=== PATIENT | female | born 1970 | race Caucasian/White ===

== ENCOUNTER → 2016-07-23 | Outpatient (CLI) | payer BC ==
[2016-07-23 14:14] VITALS: BP 117/70; PULSE 76; RESP 14; TEMP 97.9; BMI 32.2
--- NOTE | 2016-07-23 16:30 | P.HPBAR ---
Bariatric H&P - History & Physicial H&P Date: 07/23/16 History & Physicial: Visit/CC: Patient initial contact: Initial weight: 103.873 kg Initial weight in pounds: 229.00 Height: 5 ft 3.5 in Initial BMI: 39.9 Last weight: Current weight: 83.824 kg Current weight in pounds: 184.80 Current BMI: 32.2 [place] body weight (based on NIH guidelines): 53.297 kg Excess body weight loss: 39.6% The patient is a 46 year-old F who presents for Bariatric Assessment. Patient states that she is currently hungry. She feels that her LAP-BAND is not working. She has no restriction. Review of Systems Constitutional: Reports as per HPI Past Medical History Past Medical History: No Reported History History of Any Multi-Drug Resistant Organisms: None Reported Past Surgical History: Bariatric Surgery, Cholecystectomy Additional Past Surgical History / Comment(s): lap band January 2003, cholecystectomy 2006, uterine ablation 2012, Past Anesthesia/Blood Transfusion Reactions: No Reported Reaction, Postoperative Nausea & Vomiting (PONV) Additional Past Anesthesia/Blood Transfusion Reaction / Comm: no transfusions to date. Past Psychological History: No Psychological Hx Reported Smoking Status: Former smoker Past Alcohol Use History: None Reported Past Drug Use History: None Reported - Past Family History Father Family Medical History: Cancer Additional Family Medical History / Comment(s): at age 57 from Prostate Cancer, Mother Family Medical History: Coronary Artery Disease (CAD) Additional Family Medical History / Comment(s): aortic valve replacement, alive currently aged 74 Surgical - Exam Vital Signs Temp Pulse Resp BP 97.9 F 76 14 117/70 07/23/16 14:08 07/23/16 14:08 07/23/16 14:08 07/23/16 14:08 - General well developed, no distress - Eyes PERRL - ENT normal pinna - Neck no masses - Respiratory normal expansion - Cardiovascular Rhythm: regular - Abdomen Abdomen: soft Bariatric Assessment & Plan Plan: The patient LAP-BAND was accessed. There is no fluid in her band. I explained to the patient that she has a malfunctioning LAP-BAND port. The patient wishes to convert to sleeve gastrectomy and removal LAP-BAND due to the malfunction of the band. The patient will attend information seminar.. We will attempt to obtain insurance authorization for conversion to sleeve gastrectomy. Bariatric Checklist Checklist: Plan: Checklist: EGD: 1. Hiatal hernia: 2. H. Pylori: HgbA1c: Vitamin D: Smoking: Former smoker Primary care physician referral: Alexei [place]) Psychiatry clearance: Cardiology clearance: Sleep study: Diet journal: VTE risk score: VTE risk level: Rehab needs at discharge:
== END ==
LOC: BARWHC3 13:15
PROVIDERS: ATTEND Surgery
DX: Z48.815 Encounter for surgical aftercare following surgery on the digestive system (principal); Z98.84 Bariatric surgery status; Z87.891 Personal history of nicotine dependence
CPT/HCPCS: 99212

== ENCOUNTER 2016-08-15 13:52 | Day surgery (SDC) | payer BC ==
[2016-08-10 08:35] VITALS: BMI 31.7
[~2016-08-15 13:52] MED LIST: LACTATED RINGERS 1,000 ML IV SCH; LIDOCAINE 1% 20 ML VIAL (10MG/ML) FOR IV START INTRADERMA PRN
[2016-08-15 14:24] VITALS: TEMP 98.3
[2016-08-15] MEDS ORDERED: PROPOFOL 10 MG/ML 20 ML VIAL IV ONE (15:11)
[2016-08-15] MEDS ORDERED: LIDOCAINE 1% INJ 10MG/ML (20 ML MDV) ONE (15:11)
--- NOTE | 2016-08-15 15:13 | P.GSHP ---
History of Present Illness H&P Date: 08/15/16 Chief Complaint: GERD This a 46-year-old female who's had issues with GERD. Patient has previous history of LAP-BAND surgery. Patient states that her GERD symptoms of increased. Patient rents today for EGD. - Constitutional Constitutional: Reports as per HPI Past Medical History Past Medical History: No Reported History History of Any Multi-Drug Resistant Organisms: None Reported Past Surgical History: Bariatric Surgery, Cholecystectomy, Tubal Ligation, Uterine Ablation Additional Past Surgical History / Comment(s): lap band January 2003, cholecystectomy 2006, uterine ablation 2012, Past Anesthesia/Blood Transfusion Reactions: No Reported Reaction, Postoperative Nausea & Vomiting (PONV) Additional Past Anesthesia/Blood Transfusion Reaction / Comment(s): no transfusions to date. Past Psychological History: No Psychological Hx Reported Smoking Status: Former smoker Past Alcohol Use History: None Reported Past Drug Use History: None Reported - Past Family History Father Family Medical History: Cancer Additional Family Medical History / Comment(s): at age 57 from Prostate Cancer, Mother Family Medical History: Coronary Artery Disease (CAD) Additional Family Medical History / Comment(s): aortic valve replacement, alive currently aged 74 Medications and Allergies Home Medications Medication Instructions Recorded Confirmed Type No Known Home Medications [No 08/10/16 08/15/16 History Known Home Medications] Allergies Allergy/AdvReac Type Severity Reaction Status Date / Time No Known Allergies Allergy Verified 08/15/16 14:27 Surgical - Exam Vital Signs Temp Pulse Resp BP Pulse Ox 98.3 F 62 18 133/85 97 08/15/16 14:23 08/15/16 14:23 08/15/16 14:23 08/15/16 14:23 08/15/16 14:23 - General well developed, no distress - Eyes PERRL - ENT normal pinna - Neck no masses - Respiratory normal expansion - Cardiovascular Rhythm: regular - Abdomen Abdomen: soft, non tender Assessment and Plan Plan: GERD. We'll perform EGD.
--- NOTE | 2016-08-15 15:24 | P.OP ---
Date of Procedure: 08/15/16 Preoperative Diagnosis: GERD Postoperative Diagnosis: Antral gastritis Mild esophagitis LAP-BAND without evidence of inflammation or erosion Procedure(s) Performed: EGD Implants: Anesthesia: MAC Surgeon: Matty Guidry Pathology: other (Antrum, esophagus) Condition: stable Disposition: PACU Indications for Procedure: Operative Findings: Description of Procedure: The patient's placed on the endoscopy table in the lateral position. She received IV sedation. The gastroscope some placed oropharynx and passed into the esophagus and into the stomach. Scope was then placed through the pylorus. First and second portion of the duodenum appeared normal. Scope was then brought back the antrum and this appeared mildly inflamed. Biopsies were. Scope was unretroflexed and remainder stomach appeared normal. There is a previously placed Tiffanie device this without evidence of inflammation or erosion. The proximal gastric pouch appeared mildly dilated. The GE junction was at 40 cm. The distal esophagus appeared mildly inflamed a biopsies were. The proximal esophagus appeared normal. Scope was withdrawn for patient.
[2016-08-15 15:29] VITALS: RESP 16
[2016-08-15 15:47] VITALS: BP 105/69; PULSE 70
== END 2016-08-15 15:55 | disposition home or self-care (01) ==
LOC: ORWHC2ENDO 13:52
PROVIDERS: ATTEND Surgery
DX: K21.0 Gastro-esophageal reflux disease with esophagitis (principal); K29.50 Unspecified chronic gastritis without bleeding; Z98.84 Bariatric surgery status; Z87.891 Personal history of nicotine dependence
CPT/HCPCS: 81025; 88305; 88342; 43239; J2001; J2704

== ENCOUNTER → 2016-08-20 | Outpatient (CLI) | payer BC ==
[2016-08-20 12:09] VITALS: BMI 33.3
[2016-08-20 13:19] VITALS: BP 121/78; PULSE 61; TEMP 97.7
--- NOTE | 2016-08-20 13:32 | P.HPBAR ---
Bariatric H&P - History & Physicial H&P Date: 08/20/16 History & Physicial: Visit/CC: presurgical visit Patient initial contact: Initial weight: 103.873 kg Initial weight in pounds: 229.00 Height: 5 ft 3.5 in Initial BMI: 39.9 Last weight: Current weight: 86.59 kg Current weight in pounds: 190.90 Current BMI: 33.3 [place] body weight (based on NIH guidelines): 53.297 kg Excess body weight loss: 34.1% The patient is a 46 year-old F who presents for Bariatric Assessment. Patient presents for preoperative sleeve consultation. She has undergone recent EGD which showed some mild gastritis. The patient has a good understanding significant gastrectomy. We went over the risks and benefits and complications the procedure again. We focused on the risk of gastric leak. The patient's had chronic issues with dysphagia from her LAP-BAND was to the LAP-BAND removed. Past Medical History Past Medical History: No Reported History History of Any Multi-Drug Resistant Organisms: None Reported Past Surgical History: Bariatric Surgery, Cholecystectomy, Tubal Ligation, Uterine Ablation Additional Past Surgical History / Comment(s): lap band January 2003, cholecystectomy 2006, uterine ablation 2012, Past Anesthesia/Blood Transfusion Reactions: No Reported Reaction, Postoperative Nausea & Vomiting (PONV) Additional Past Anesthesia/Blood Transfusion Reaction / Comm: no transfusions to date. Past Psychological History: No Psychological Hx Reported Smoking Status: Former smoker Past Alcohol Use History: None Reported Past Drug Use History: None Reported - Past Family History Father Family Medical History: Cancer Additional Family Medical History / Comment(s): at age 57 from Prostate Cancer, Mother Family Medical History: Coronary Artery Disease (CAD) Additional Family Medical History / Comment(s): aortic valve replacement, alive currently aged 74 Surgical - Exam Vital Signs Temp Pulse BP 97.7 F 61 121/78 08/20/16 13:15 08/20/16 13:15 08/20/16 13:15 - General well developed, no distress - Eyes PERRL - ENT normal pinna - Neck no masses - Respiratory normal expansion - Cardiovascular Rhythm: regular - Abdomen Abdomen: soft, non tender Bariatric Assessment & Plan Plan: Dysphagia, GERD, morbid obesity. Patient will be scheduled for sleeve gastrectomy once her preauthorization has been completed. Bariatric Checklist Checklist: Plan: Checklist: EGD: 1. Hiatal hernia: 2. H. Pylori: HgbA1c: Vitamin D: Smoking: Former smoker Primary care physician referral: [place]) Psychiatry clearance: Cardiology clearance: Sleep study: Diet journal: VTE risk score: VTE risk level: Rehab needs at discharge:
== END | disposition home or self-care (01) ==
LOC: BARWHC3 08:49
PROVIDERS: ATTEND Surgery
DX: E66.01 Morbid (severe) obesity due to excess calories (principal); Z87.891 Personal history of nicotine dependence
CPT/HCPCS: 97804; 99211

== ENCOUNTER → 2016-08-20 | Outpatient (CLI) | payer BC ==
[2016-08-20 14:00] LABS: EKG EKG PERFORMED
[2016-08-20 14:31] LABS: Basophils % (A) 1 %; CH 31.2; CHCM 33.1; Eosinophils # (A) 0.3 k/uL (0-0.7); Eosinophils % (A) 3 %; HCT 40.2 % (34.0-46.0); HDW 2.31; HGB 13.5 gm/dL (11.4-16.0); Luc # (Auto) 0.21; Luc % (Auto) 2; Lymphocytes # (A) 2.4 k/uL (1.0-4.8); Lymphocytes % (A) 28 %; MCH 31.8 pg (25.0-35.0); MCHC 33.6 g/dL (31.0-37.0); MCV 94.8 fL (80.0-100.0); Mean Platelet Volume 7.8; Monocytes # (A) 0.4 k/uL (0-1.0); Monocytes % (A) 5 %; Neutrophils # (A) 5.4 k/uL (1.3-7.7); Neutrophils % (A) 62 %; RBC 4.24 m/uL (3.80-5.40); RDW 12.9 % (11.5-15.5); WBC 8.8 k/uL (3.8-10.6); WBC (Perox) 9.23
[2016-08-20 14:40] LABS: ALT 27 U/L (9-52); AST 31 U/L (14-36); Alkaline Phosphatase 72 U/L (38-126); Anion Gap 12 mmol/L; Blood Urea Nitrogen 12 mg/dL (7-17); Calcium 9.9 mg/dL (8.4-10.2); Carbon Dioxide 25 mmol/L (22-30); Chloride 104 mmol/L (98-107); Glucose 91 mg/dL (74-99); Non-African American GFR(MDRD) >60 (>60 ml/min/1.73 sqM); Potassium 4.5 mmol/L (3.5-5.1); Sodium 141 mmol/L (137-145); Total Bilirubin 0.8 mg/dL (0.2-1.3); Total Protein 7.7 g/dL (6.3-8.2)
== END | disposition home or self-care (01) ==
LOC: LABPAT 13:45
PROVIDERS: ATTEND Surgery
DX: Z01.812 Encounter for preprocedural laboratory examination (principal)
CPT/HCPCS: 80053; 85025; 93005

== ENCOUNTER 2016-09-12 09:59 | Inpatient (IN) | payer BC ==
[~2016-09-12 09:59] MED LIST changes: +DEXAMETHASONE SOD PHOSPHATE 10 MG/ML 1 ML VIAL IV ONE; +MIDAZOLAM 2 MG/2 ML VIAL IV PRN; +ONDANSETRON 4 MG/2 ML VIAL IVP ONE; +SCOPOLAMINE 1.5MG/72HR PATCH TRANSDERM ONE; +ceFAZolin 2 GM in SODIUM CHLORIDE 0.9% 100 ML IVPB ONE
[2016-09-12] MEDS ORDERED: ENOXAPARIN 40 MG/0.4 ML SYRINGE SQ STA (15:51)
--- NOTE | 2016-09-12 16:15 | P.GSHP ---
History of Present Illness H&P Date: 09/12/16 Chief Complaint: Dysphagia secondary to gastric prolapse Is a 38-year-old female who presents today for laparoscopic removal of LAP-BAND and conversion sleeve gastrectomy. She's had progressive issues with dysphagia secondary to gastric prolapse and displacement of her LAP-BAND. Patient is aware the risk surgery including conversion O procedure and injury to the stomach liver spleen. She is also aware the risk of gastric staple line disruption perforation or bleeding. - Constitutional Constitutional: Reports as per HPI Past Medical History Past Medical History: No Reported History Additional Past Medical History / Comment(s): ANEMIA, BRADFORD RIGHT HAND., STATES LAP BAND IS BROKE. History of Any Multi-Drug Resistant Organisms: None Reported Past Surgical History: Bariatric Surgery, Cholecystectomy, Tubal Ligation, Uterine Ablation Additional Past Surgical History / Comment(s): lap band January 2003, cholecystectomy 2006, uterine ablation 2012, Past Anesthesia/Blood Transfusion Reactions: Motion Sickness, Postoperative Nausea & Vomiting (PONV) Additional Past Anesthesia/Blood Transfusion Reaction / Comment(s): . Past Psychological History: No Psychological Hx Reported Smoking Status: Never smoker Past Alcohol Use History: None Reported Past Drug Use History: None Reported - Past Family History Father Family Medical History: Cancer Additional Family Medical History / Comment(s): at age 57 from Prostate Cancer, Mother Family Medical History: Coronary Artery Disease (CAD) Additional Family Medical History / Comment(s): aortic valve replacement, alive currently aged 74 Medications and Allergies Home Medications Medication Instructions Recorded Confirmed Type Multivitamin [Multiple Vitamins] 1 each PO DAILY 09/04/16 09/04/16 History Allergies Allergy/AdvReac Type Severity Reaction Status Date / Time No Known Allergies Allergy Verified 09/04/16 10:31 Surgical - Exam Vital Signs Temp Pulse Resp BP Pulse Ox 97.0 F L 78 16 95/71 95 09/12/16 15:08 09/12/16 15:08 09/12/16 15:08 09/12/16 15:08 09/12/16 15:08 - General well developed, no distress - Eyes PERRL - ENT normal pinna - Neck no masses - Respiratory normal expansion - Cardiovascular Rhythm: regular - Abdomen Abdomen: soft, non tender Assessment and Plan Plan: Gastric prolapse, dysphagia. We'll perform removal of LAP-BAND and conversion sleeve gastrectomy.
[2016-09-12] MEDS ORDERED: METHYLENE BLUE 15 MG in DEXTROSE 5% IN WATER 500 ML IRRIGATION ONE ×2 (16:30)
[2016-09-12] MEDS ORDERED: MIDAZOLAM 2 MG/2 ML VIAL ONE (16:38)
[2016-09-12] MEDS ORDERED: PROPOFOL 10 MG/ML 20 ML VIAL IV ONE (16:38)
[2016-09-12] MEDS ORDERED: KETOROLAC 30 MG/ML 1 ML VIAL ONE (16:38)
[2016-09-12] MEDS ORDERED: GLYCOPYRROLATE 0.2 MG/ML 2 ML VIAL ONE (16:38)
[2016-09-12] MEDS ORDERED: fentaNYL (PF) 50 MCG/ML 2 ML AMP ONE (16:38)
[2016-09-12] MEDS ORDERED: LIDOCAINE 1% INJ 10MG/ML (20 ML MDV) ONE (16:38)
[2016-09-12] MEDS ORDERED: SUCCINYLCHOLINE CHLORIDE 100 MG/5 ML SYR IV ONE (16:38)
[2016-09-12] MEDS ORDERED: ROCURONIUM BROMIDE 10 MG/ML 10 ML VIAL IV ONE (16:38)
[2016-09-12] MEDS ORDERED: NEOSTIGMINE 1 MG/ML 10 ML VIAL ONE (16:38)
[2016-09-12] MEDS ORDERED: LACTATED RINGERS 1,000 ML IV ONE (17:05)
[2016-09-12] MEDS ORDERED: BUPIVACAIN-EPI 0.25%-1:200,000 30 ML VIAL SQ ONE (17:13)
[2016-09-12] MEDS ORDERED: NALOXONE 0.4 MG/ML 1 ML VIAL IV PRN (18:18)
--- NOTE | 2016-09-12 18:19 | P.OP ---
Date of Procedure: 09/12/16 Preoperative Diagnosis: Dysphagia Gastric prolapse Postoperative Diagnosis: Dysphagia Gastric prolapse Procedure(s) Performed: Removal LAP-BAND system Laparoscopic sleeve gastrectomy Implants: Anesthesia: YOVANIA Surgeon: Matty Guidry Estimated Blood Loss (ml): 50 Pathology: other (Stomach) Condition: stable Disposition: PACU Indications for Procedure: Operative Findings: Description of Procedure: TThe patient was placed on the operating room table in the supine position. She received general anesthesia and then was placed in dorsal lithotomy position. Her abdomen was prepped and draped in sterile fashion. The skin incision sites were anesthetized 1% local Xylocaine. And then the skin was incised with an 11 blade in the left lateral position. Using a blade less trocar under direct visualization the peritoneal cavity was entered. The abdomen was insufflated and then a 5 mm laparoscope was placed into the peritoneal cavity. A 5 mm trocar was placed in the right epigastric, and right lateral position. A 15 mm trocar was placed in the supra-umbilical position and another 5 mm trocar was placed in the left lateral position. The left lateral lobe of the liver was retracted. The stomach was visualized. The LAP-BAND device was visualized. The LAP-BAND was dissected free from the stomach. The buckle was then cut and then the anterior gastric wall plication was taken down with sharp dissection. Care was taken to visualize the stomach and esophagus and present injury to the stomach and esophagus. Once the LAP- BAND and was free it was extracted through the 15 mm trocar site The greater curvature of the stomach was then dissected using the Harmonic scissors. The dissection occurred approximately 5 cm from the pylorus to the level of the left yumiko. There was no hiatal hernia seen. At this point a 40- Italian bougie dilator was placed the oropharynx and passed into the esophagus and into the stomach by the SURVEILLANCE INVESTIGATOR. The sleeve gastrectomy was performed by using the powered echelon stapler with a seam guard buttress material. Sequential firings of the stapler were performed. The gastric remnant was then brought out through the 15 mm trocar site. The dilator was withdrawn. And a orogastric tube was replaced into the stomach. The stomach was insufflated with 200 mL of methylene blue normal saline. There was no evidence of extravasation. The abdomen was irrigated there is no bleeding seen. The Doug -Samantha device was used to close the 15 mm trocar with 0 Vicryl. Skin was closed with interrupted 3-0 Monocryl sutures once the trochars withdrawn. Dermabond dressing was applied. Patient was sent to recovery in stable condition.
[2016-09-12] MEDS: HYDROmorphone 1 MG/ML 1 ML SYRINGE IVP PRN ×5 (18:39→22:59)
[2016-09-12] MEDS: 0.9% NACL WITH KCL 20 MEQ/L 1,000 ML IV SCH (19:51)
[2016-09-12] MEDS: ALBUTEROL NEBULIZED 2.5 MG/3 ML INHALATION SCH (21:00)
[2016-09-13] MEDS: AMPICILLIN-SULBACTAM 3 GM in SODIUM CHLORIDE 0.9% 100 ML IVPB SCH ×2 (00:24→05:55)
[2016-09-13] MEDS: HYDROmorphone 1 MG/ML 1 ML SYRINGE IVP PRN ×2 (02:57→05:56)
[2016-09-13] MEDS: 0.9% NACL WITH KCL 20 MEQ/L 1,000 ML IV SCH (03:00)
[2016-09-13] MEDS: ONDANSETRON 4 MG/2 ML VIAL IVP PRN ×2 (03:03→09:47)
[2016-09-13 07:01] LABS: Basophils % (A) 0 %; CH 30.9; CHCM 32.1; Eosinophils % (A) 0 %; HDW 2.39; HGB 11.9 gm/dL (11.4-16.0); Luc # (Auto) 0.22; Luc % (Auto) 2; Lymphocytes # (A) 1.2 k/uL (1.0-4.8); Lymphocytes % (A) 9 %; MCHC 33.1 g/dL (31.0-37.0); MCV 96.8 fL (80.0-100.0); Mean Platelet Volume 7.8; Monocytes # (A) 0.6 k/uL (0-1.0); Monocytes % (A) 5 %; Neutrophils # (A) 10.8 k/uL (1.3-7.7); Neutrophils % (A) 84 %; RBC 3.72 m/uL (3.80-5.40); RDW 12.7 % (11.5-15.5); WBC 12.8 k/uL (3.8-10.6); WBC (Perox) 13.22
[2016-09-13 07:20] LABS: Anion Gap 13 mmol/L; Blood Urea Nitrogen 9 mg/dL (7-17); Calcium 7.9 mg/dL (8.4-10.2); Carbon Dioxide 17 mmol/L (22-30); Chloride 110 mmol/L (98-107); Magnesium 1.9 mg/dL (1.6-2.3); Non-African American GFR(MDRD) >60 (>60 ml/min/1.73 sqM); Phosphorous 3.6 mg/dL (2.5-4.5); Potassium 4.8 mmol/L (3.5-5.1); Sodium 140 mmol/L (137-145)
[2016-09-13 07:34] VITALS: BP 110/56; TEMP 97.9
[2016-09-13 08:00] VITALS: PULSE 100; RESP 18
[2016-09-13] MEDS: ALBUTEROL NEBULIZED 2.5 MG/3 ML INHALATION SCH ×3 (08:00→16:21)
[2016-09-13] MEDS ORDERED: ENOXAPARIN 40 MG/0.4 ML SYRINGE SQ SCH (09:00)
[2016-09-13] MEDS ORDERED: PANTOPRAZOLE 40 MG/10 ML VIAL IV SCH (09:00)
--- NOTE | 2016-09-13 09:35 | FL ---
SINGLE CONTRAST UPPER GI EXAMINATION: CLINICAL HISTORY: 46-year-old female postop bariatric surgery, lap band removal and placement of gas tric sleeve. TECHNIQUE: Single contrast exam performed with 25 ml Omnipaque 350 contrast. Total fluoroscopy time: 19 seconds. FINDINGS: The patient swallowed oral contrast with hesitation. Esophageal peristalsis and motility are within n ormal limits. Initial small sips showed satisfactory passage of contrast into the stomach and proxim al small bowel. There are postsurgical changes of sleeve gastrectomy. A larger swallow showed pooling of contrast into the lower esophagus. The patient became nauseous and it took approximately 1 to 2 m inutes for the contrast to pass into the stomach. After passage, the patient's nausea subsided. The p ostsurgical changes of sleeve gastrectomy are better demonstrated and there is satisfactory movement of contrast into the proximal small bowel. There is no evidence of contrast extravasation to suggest leak. No postsurgical free air seen. IMPRESSION: No evidence of leak status post sleeve gastrectomy. A normal swallow of contrast shows a mild relativ e obstruction to passage into the stomach. The patient becomes nauseous and it takes approximately 1 to 2 minutes for contrast to pass.
[2016-09-13] MEDS ORDERED: KETOROLAC 30 MG/ML 1 ML VIAL IVP SCH (10:00)
[2016-09-13] MEDS ORDERED: HYDROcodone/APAP 15 ML SOLUTION PO PRN (10:06)
--- NOTE | 2016-09-13 10:15 | P.CONS ---
History of Present Illness - Reason for Consult Consult date: 09/12/16 Medical management - History of Present Illness A very pleasant 46-year-old female is being seen at the request of the attending for medical consultation for medical management in a patient who is postop removal of a lap band and conversion the sleeve gastrectomy. Done on September 12 Patient states that greater than 14 years ago she did undergo a lap band for morbid obesity for weight loss. Patient stated that she been doing relatively well. But she had noted over the last several months to be experiencing progressive issues with dysphagia secondary to gastric prolapse and displacement of the LAP-BAND. Patient stated that she has been followed by Dr. martnies. Patient presented on elective basis to undergo laparoscopic appendectomy with removal of the LAP-BAND and conversion to a sleeve gastrectomy patient gives no significant past medical history. Patient's primary care provider is Dr. Blake from [facility]. Patient states she's a fairly active individual exercises every day has been watching her diet denies any dizziness lightheadedness denies any chest pain denies any prior cardiac history. Patient's a lifelong nonsmoker and no history of alcohol. Review of Systems Essentially unremarkable except as mentioned in the present illness Past Medical History Past Medical History: No Reported History Additional Past Medical History / Comment(s): ANEMIA, BRADFORD RIGHT HAND., STATES LAP BAND IS BROKE. History of Any Multi-Drug Resistant Organisms: None Reported Past Surgical History: Bariatric Surgery, Cholecystectomy, Tubal Ligation, Uterine Ablation Additional Past Surgical History / Comment(s): lap band January 2003, cholecystectomy 2006, uterine ablation 2012, Past Anesthesia/Blood Transfusion Reactions: Motion Sickness, Postoperative Nausea & Vomiting (PONV) Additional Past Anesthesia/Blood Transfusion Reaction / Comm: . Past Psychological History: No Psychological Hx Reported Smoking Status: Never smoker Past Alcohol Use History: None Reported Past Drug Use History: None Reported - Past Family History Father Family Medical History: Cancer Additional Family Medical History / Comment(s): at age 57 from Prostate Cancer, Mother Family Medical History: Coronary Artery Disease (CAD) Additional Family Medical History / Comment(s): aortic valve replacement, alive currently aged 74 Medications and Allergies Home Medications Medication Instructions Recorded Confirmed Type Multivitamin [Multiple Vitamins] 1 tab PO DAILY 09/04/16 09/12/16 History Allergies Allergy/AdvReac Type Severity Reaction Status Date / Time No Known Allergies Allergy Verified 09/12/16 18:43 Physical Exam Vitals: Vital Signs Temp Pulse Pulse Pulse Resp BP Pulse Ox 09/13/16 07:59 100 18 97 09/13/16 07:00 97.9 F 96 16 110/56 97 09/13/16 01:31 97.0 F L 74 16 105/64 95 09/13/16 00:15 113/76 09/12/16 23:17 95 09/12/16 23:06 100 09/12/16 21:30 116/75 09/12/16 21:01 100 09/12/16 21:00 113/77 09/12/16 20:45 110/70 09/12/16 20:30 103/76 09/12/16 20:15 102/66 09/12/16 20:00 118/76 09/12/16 19:45 97.1 F L 77 16 112/69 100 09/12/16 19:00 64 18 105/64 98 09/12/16 18:45 62 18 116/62 98 09/12/16 18:33 92 18 119/69 96 09/12/16 18:25 96.8 F L 101 H 16 116/69 96 09/12/16 15:08 97.0 F L 78 16 95/71 95 Intake and Output 09/12/16 09/13/16 09/13/16 22:59 06:59 14:59 Intake Total 1850 Output Total 50 Balance 1800 Intake: IV 1850 Output: Estimated Blood Loss 50 Other: Weight 81.9 kg GENERAL APPEARANCE: 46-year-old female sitting up in bed patient is alert, oriented, in no acute distress. VITAL SIGNS: Reviewed HEENT: Head is normocephalic and atraumatic. Pupils are equal and reactive. The nares are patent. Oropharynx is clear without lesions. NECK: Supple without lymphadenopathy. Traches midline. HEART: S1, S2. Regular rate and rhythm. Denying chest pain no murmur noted LUNGS: No crackles or wheezes are heard. Adequate air movement bilaterally no shortness of breath noted ABDOMEN: Soft, slight surgical tenderness, nondistended with good bowel sounds. No peritoneal signs. No palpable organomegaly or masses. Surgical sites benign no redness noted urinating no difficulty no reports of nausea vomiting "slight surgical pain" passing no gas rectally no stool EXTREMITIES: Normal skin color and turgor. No cyanosis, rash, ulceration, clubbing or edema. Radial pedal pulses are 2/4 bilaterally. Venodyne's on bilaterally lower extremities NEUROLOGICAL: No focal deficits. Strength and sensation are grossly intact. Results CBC & Chem 7: 09/13/16 06:34 09/13/16 06:34 Labs: Abnormal Lab Results - Last 24 Hours (Table) 09/13/16 09/13/16 Range/Units 06:34 06:34 WBC 12.8 H (3.8-10.6) k/uL RBC 3.72 L (3.80-5.40) m/uL Neutrophils # 10.8 H (1.3-7.7) k/uL Chloride 110 H (98-107) mmol/L Carbon Dioxide 17 L (22-30) mmol/L Creatinine 0.49 L (0.52-1.04) mg/dL Calcium 7.9 L (8.4-10.2) mg/dL Assessment and Plan Plan: Impression Dysphagia secondary to gastric prolapse present on admission Status post September 12 removal of lap band and conversion sleeve gastrectomy History of morbid obesity with a prior LAP-BAND greater than 14 years prior Lifelong nonsmoker Progressive symptoms dysphagia secondary to gastric prolapse and displacement of lap band Plan Continue postop surgical care per surgical services recommendations Pain control Follow-up on pending study DVT and GI prophylaxis Thank you for allowing us to participate in the medical management of your patient will follow medical course closely The above impression and plan of care have been discussed and directed by signing physician. Mariela Leung nurse practitioner acting as scribe for signing physician.
--- NOTE | 2016-09-13 11:15 | P.PN ---
Subjective 46-year-old female being seen and evaluated. Patient is postop day 1 removal of the LAP-BAND with conversion of the sleeve gastrectomy done. Patient has history of for the last several months been experiencing progressive issues with dysphagia secondary to gastric prolapse and displacement of the LAP-BAND. Patient has a history of LAP-BAND placed greater than 14 years ago for morbid obesity with weight loss. Postop no events noted patient states has been up ambulating in the room. Is not passing gas bowel tones present states pain medication has been effective for pain control denies any nausea vomiting the patient's upper GI done this morning show no evidence of a leak status post sleeve gastrectomy. Normal swallow of contrast Objective - Vital Signs Vital signs: Vital Signs Temp 97.9 F 09/13/16 07:00 Pulse 100 09/13/16 07:59 Resp 18 09/13/16 07:59 BP 110/56 09/13/16 07:00 Pulse Ox 97 09/13/16 07:59 Intake & Output 09/12/16 09/13/16 09/13/16 18:59 06:59 18:59 Intake Total 1850 Output Total 50 Balance 1800 Weight 81.9 kg Intake: IV 1850 Output: Estimated Blood Loss 50 Other: Voiding Method Toilet # Voids 1 - Exam Physical exam Pleasant 46-year-old female alert oriented 3 does not appear in any acute distress Lungs essentially clear adequate air movement on room air no shortness of breath Heart S1-S2 audible and regular denying chest pain Abdomen soft nontender surgical sites benign no redness noted hypoactive bowel tones passing no gas tolerating ice chips Extremities no edema noted Venodyne's on bilaterally - Labs CBC & Chem 7: 09/13/16 06:34 09/13/16 06:34 Labs: Abnormal Lab Results - Last 24 Hours (Table) 09/13/16 09/13/16 Range/Units 06:34 06:34 WBC 12.8 H (3.8-10.6) k/uL RBC 3.72 L (3.80-5.40) m/uL Neutrophils # 10.8 H (1.3-7.7) k/uL Chloride 110 H (98-107) mmol/L Carbon Dioxide 17 L (22-30) mmol/L Creatinine 0.49 L (0.52-1.04) mg/dL Calcium 7.9 L (8.4-10.2) mg/dL Assessment and Plan Plan: Impression Dysphagia secondary to gastric prolapse present on admission Status post September 12 removal of lap band and conversion sleeve gastrectomy History of morbid obesity with a prior LAP-BAND greater than 14 years prior Lifelong nonsmoker Progressive symptoms dysphagia secondary to gastric prolapse and displacement of lap band Plan Continue postop surgical care per surgical services recommendations Pain control Prepped for probable discharge in the next 24 hours defer to the timing of the discharge to surgical service DVT and GI prophylaxis The above impression and plan of care have been discussed and directed by signing physician. Mariela Leung nurse practitioner acting as scribe for signing physician.
[2016-09-13] MEDS ORDERED: ACETAMINOPHEN TAB 325 MG TAB PO PRN (12:02)
--- NOTE | 2016-09-13 13:01 | P.DS ---
Providers Date of admission: 09/12/16 14:34 Expected date of discharge: 09/13/16 Attending physician: Matty Guidry Consults: 09/12/16 18:18 Consult Physician Routine Consulting Provider: Vernon Watson Reason/Comments: Medical management Do you want consulting provider notified?: Yes Primary care physician: Stated None Hospital Course: This a 38-year-old female who underwent laparoscopic removal of LAP-BAND and conversion sleeve gastrectomy on 09/12/2016. Patient well postoperatively. Discussed her for details. Procedures: Laps LAP-BAND, laparoscopic sleeve gastrectomy Patient Condition at Discharge: Good Plan - Discharge Summary New Discharge Prescriptions: New Docusate [Colace] 100 mg PO BID #20 capsule HYDROcodone/APAP 7.5-325MG [[place] 7.5] 1 each PO Q4H PRN #60 tab PRN Reason: Pain Omeprazole 40 mg PO DAILY #60 capsule. Ondansetron HCl [Zofran] 4 mg PO Q4HR PRN #30 tablet PRN Reason: Nausea No Action Multivitamin [Multiple Vitamins] 1 tab PO DAILY Discharge Medication List Multivitamin [Multiple Vitamins] 1 tab PO DAILY 09/04/16 [History] Docusate [Colace] 100 mg PO BID #20 capsule 09/13/16 [Rx] HYDROcodone/APAP 7.5-325MG [[place] 7.5] 1 each PO Q4H PRN #60 tab 09/13/16 [Rx] Omeprazole 40 mg PO DAILY #60 capsule. 09/13/16 [Rx] Ondansetron HCl [Zofran] 4 mg PO Q4HR PRN #30 tablet 09/13/16 [Rx] Follow up Appointment(s)/Referral(s): [facility],. [NON-STAFF] - 2 Weeks Discharge Disposition: HOME SELF-CARE
[2016-09-13 13:30] VITALS: BMI 30.9
== END 2016-09-13 17:13 | disposition home or self-care (01) | DRG 328 ==
LOC: 2ORWHC 14:34 → 3SUR 18:29
PROVIDERS: ADMIT Surgery; ATTEND Surgery
PROC: 0DB64Z3 Excision of Stomach, Percutaneous Endoscopic Approach, Vertical (ICD-10-PCS; principal; 2016-09-12 18:05)
PROC: 0DP64CZ Removal of Extraluminal Device from Stomach, Percutaneous Endoscopic Approach (ICD-10-PCS; 2016-09-12 18:05)
DX: K95.09 Other complications of gastric band procedure (principal); R13.19 Other dysphagia; K31.89 Other diseases of stomach and duodenum; Z82.49 Family history of ischemic heart disease and other diseases of the circulatory system; Y73.8 Miscellaneous gastroenterology and urology devices associated with adverse incidents, not elsewhere classified
CPT/HCPCS: 74240; 80051; 82310; 82565; 83735; 84100; 84520; 85025; 88307; 94760

== ENCOUNTER → 2016-10-08 | Outpatient (CLI) | payer BC ==
[2016-10-08 13:25] VITALS: BP 101/76; PULSE 76; RESP 16; TEMP 98.5; BMI 29.4
--- NOTE | 2016-10-08 17:19 | P.HPBAR ---
Bariatric H&P - History & Physicial H&P Date: 10/08/16 History & Physicial: Visit/CC: Sleeve follow-up Patient initial contact: Initial weight: 103.873 kg Initial weight in pounds: 229.00 Height: 5 ft 4 in Initial BMI: 39.3 Last weight: Current weight: 77.734 kg Current weight in pounds: 171.00 Current BMI: 29.4 [place] body weight (based on NIH guidelines): 54.431 kg Excess body weight loss: 53.2% The patient is a 46 year-old F who presents for Bariatric Assessment. Patient presents today for gastric sleeve follow-up. She is doing quite well. She has lost approximately 20 pounds since her surgery. Past Medical History Past Medical History: No Reported History Additional Past Medical History / Comment(s): ANEMIA, [place] RIGHT HAND., STATES LAP BAND IS BROKE. History of Any Multi-Drug Resistant Organisms: None Reported Past Surgical History: Bariatric Surgery, Cholecystectomy, Tubal Ligation, Uterine Ablation Additional Past Surgical History / Comment(s): lap band January 2003, cholecystectomy 2006, uterine ablation 2012, Past Anesthesia/Blood Transfusion Reactions: Motion Sickness, Postoperative Nausea & Vomiting (PONV) Additional Past Anesthesia/Blood Transfusion Reaction / Comm: . Past Psychological History: No Psychological Hx Reported Smoking Status: Never smoker Past Alcohol Use History: None Reported Past Drug Use History: None Reported - Past Family History Father Family Medical History: Cancer Additional Family Medical History / Comment(s): at age 57 from Prostate Cancer, Mother Family Medical History: Coronary Artery Disease (CAD) Additional Family Medical History / Comment(s): aortic valve replacement, alive currently aged 74 Surgical - Exam Vital Signs Temp Pulse Resp BP 98.5 F 76 16 101/76 10/08/16 13:22 10/08/16 13:22 10/08/16 13:22 10/08/16 13:22 - General well developed, no distress - Abdomen Abdomen: soft, non tender Bariatric Assessment & Plan Plan: Sleeve gastrectomy. Patient doing quite well. She will follow-up in 4 weeks. Bariatric Checklist Checklist: Plan: Checklist: EGD: 1. Hiatal hernia: 2. H. Pylori: HgbA1c: Vitamin D: Smoking: Never smoker Primary care physician referral: Alexei OsheaHeadrick) Psychiatry clearance: Cardiology clearance: Sleep study: Diet journal: VTE risk score: VTE risk level: Rehab needs at discharge:
== END ==
LOC: BARWHC3 12:52
PROVIDERS: ATTEND Surgery
DX: E66.01 Morbid (severe) obesity due to excess calories (principal); Z98.84 Bariatric surgery status
CPT/HCPCS: 97803; 99211